=== PATIENT | male | born 1985 | race Caucasian/White ===

== ENCOUNTER 2017-08-27 09:10 | Emergency (ER) | payer OTHER ==
[2017-08-27 09:30] VITALS: BP 136/87; PULSE 61; RESP 16; TEMP 98.3; O2SAT 100
--- NOTE | 2017-08-27 10:20 | ED PDOC ---
Arrival/HPI - General Chief Complaint: Back Pain Time Seen by Provider: 08/27/17 09:35 Historian: Patient - History of Present Illness Narrative History of Present Illness (Text): 08/27/17 10:15 Pt is a 32 yr old male who presents tot the Ed for pain and numbness in the left LE for the past week. States that he has noticed his leg getting increasingly numb especially while standing and walking but finds relief when seated of lying supine. Has been taking a homeopathic remedy for sciatica but no significant change noted. 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 Denies chest pain, shortness of breath, fever, change in bowel or bladder, saddle paraesthesia, loss of balance , n/v/d, trauma or any other complaints. Time/Duration: Prior to Arrival Past Medical History - Provider Review Nursing Documentation Reviewed: Yes - Travel History Have you recently traveled outside [place] w/in the past 3 mons?: No - Cardiac Hx Cardiac Disorders: No - Pulmonary Hx Respiratory Disorders: Yes Hx Asthma: Yes - Neurological Hx Neurological Disorder: No - HEENT Hx HEENT Disorder: No - Renal Hx Renal Disorder: No - Endocrine/Metabolic Hx Endocrine Disorders: No - Hematological/Oncological Hx Blood Disorders: No - Integumentary Hx Dermatological Disorder: No - Musculoskeletal/Rheumatological Hx Musculoskeletal Disorders: No - Gastrointestinal Hx Gastrointestinal Disorders: No - Genitourinary/Gynecological Hx Genitourinary Disorders: No - Psychiatric Hx Psychophysiologic Disorder: No Hx Substance Use: No Family/Social History - Physician Review Nursing Documentation Reviewed: Yes Family/Social History: No Known Family HX Smoking Status: Current Some Days Smoker Hx Alcohol Use: Yes Frequency of alcohol use: Socially Hx Substance Use: No Allergies/Home Meds Allergies/Adverse Reactions: Allergies No Known Allergies Allergy (Verified 08/27/17 09:26) Review of Systems - Review of Systems Constitutional: Normal Eyes: Normal ENT: Normal Respiratory: Normal Cardiovascular: Normal Gastrointestinal: Normal Genitourinary Male: Normal Musculoskeletal: Back Pain Skin: Normal Neurological: Normal Psychiatric: Normal Physical Exam Vital Signs Reviewed: Yes Vital Signs Temp Pulse Resp BP Pulse Ox 08/27/17 09:27 98.3 F 61 16 136/87 100 Temperature: Afebrile Blood Pressure: Normal Pulse: Regular Respiratory Rate: Normal Appearance: Positive for: Well-Appearing, Non-Toxic, Comfortable Pain Distress: Mild Mental Status: Positive for: Alert and Oriented X 3 - Systems Exam Head: Present: Atraumatic, Normocephalic Neck: Present: Normal Range of Motion Respiratory/Chest: Present: Clear to Auscultation, Good Air Exchange. No: Respiratory Distress, Accessory Muscle Use Cardiovascular: Present: Regular Rate and Rhythm, Normal S1, S2. No: Murmurs Abdomen: No: Tenderness, Distention, Peritoneal Signs Back: Present: Normal Inspection, Paraspinal Tenderness (lumbar from L4-S1). No : CVA Tenderness, Pain with Leg Raise Upper Extremity: Present: Normal Inspection. No: Cyanosis, Edema Lower Extremity: Present: Normal Inspection, NORMAL PULSES, Normal ROM, Neurovascularly Intact, Capillary Refill < 2 s. No: Edema, CALF TENDERNESS, Cyanosis, Clementina's Sign, Tenderness, Swelling, Temperature Abnormalties Neurological: Present: GCS=15, CN II-XII Intact, Speech Normal, Motor Func Grossly Intact, Normal Sensory Function, Norm Deep Tendon Reflexes, Gait Normal Skin: Present: Warm, Dry, Normal Color. No: Rashes Psychiatric: Present: Alert, Oriented x 3, Normal Insight, Normal Concentration Medical Decision Making ED Course and Treatment: 08/27/17 10:20 Impression Pt is a 32 yr old male who presents tot the Ed for pain and numbness in the left LE for the past week. (+)SLR Left LE with radiculopathy down to heel Working Dx: herniated disc of lumbar spine, lumbar spinal stenosis Plan Toradol IM gabapentin po assess and dispo Progress note referral to spine and pain management in [place] gabapentin 300mg po tid for neuropathic pain] advised on ergonomics and lifestyle modifications 08/27/17 10:57 IMPRESSION: Please note evaluation of the discs and spinal canal is limited on noncontrast CT examination. Allowing for this, no acute fracture, spondylolysis or spondylosis listhesis. Mild multilevel degenerative disc disease superimposed on a congenitally narrow spinal canal, worse at L4-5 with a large left posterolateral and foraminal disc extrusion with mass effect on the traversing L5 and exiting L4 nerve root. Also noted is moderate spinal canal stenosis, [id number] right and severe left neural foraminal narrowing. Additional comments as described above. 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 There is normal alignment of the lumbar vertebral bodies. There is normal lumbar lordosis. There is no acute fracture, spondylolysis or spondylolisthesis. Bone mineralization is normal. DISCS/SPINAL CANAL/NEURAL FORAMINA: L1-2: No large disc herniation, neural foraminal or spinal canal stenosis. L2-3: Diffuse posterior disc bulge and mild ligamentum flavum infolding without central spinal canal stenosis. Mild bilateral facet arthropathy contribute to mild neural foraminal narrowing. L3-4: Diffuse posterior disc bulge in conjunction with mild ligamentum flavum infolding results in mild spinal canal stenosis. Mild bilateral facet arthropathy contribute to mild neural foraminal narrowing. L4-5: There is a large left posterolateral and foraminal disc extrusion with approximately 9 mm posterior lateral extrusion of disc fragment with resultant compression on the traversing L5 nerve root and the traversing left-sided nerve roots. The foraminal component also results in mass effect on the exiting left L4 nerve root. Moderate ligamentum flavum infolding contributes to moderate spinal canal stenosis. Moderate bilateral facet arthropathy contribute to severe left and [id number] right neural foraminal L5-S1: Broad-based central disc protrusion and mild spinal canal stenosis. Mild bilateral facet arthropathy contribute to moderate neural foraminal narrowing. Evaluation of the spinal canal is limited in the absence of intrathecal contrast. 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 PARASPINAL SOFT TISSUES: The paraspinous soft tissues are normal. Imaged portion of the retroperitoneum is within normal limits. OTHER FINDINGS: None. IMPRESSION: Please note evaluation of the discs and spinal canal is limited on noncontrast CT examination. Allowing for this, no acute fracture, spondylolysis or spondylosis listhesis. Mild multilevel degenerative disc disease superimposed on a congenitally narrow spinal canal, worse at L4-5 with a large left posterolateral and foraminal disc extrusion with mass effect on the traversing L5 and exiting L4 nerve root. Also noted is moderate spinal canal stenosis, [id number] right and severe left neural foraminal narrowing. Additional comments as described above. Radiology Orders: 08/27/17 10:12 LUMBAR SPINE W/O CONTRAST [CT] Stat - Medication Orders Current Medication Orders: Discontinued Medications Ketorolac Tromethamine (Toradol) 30 mg IM STAT STA Stop: 08/27/17 10:15 Last Admin: 08/27/17 10:39 Dose: 30 mg MAR Pain Assessment Document 08/27/17 10:39 [place] (Rec: 08/27/17 10:39 [place] [id number]) Pain Reassessment Is this a pain reassessment? Yes Presence of Pain Presence of Pain Yes Pain Scale Used Pain Scale Used Numeric Location Upper or Lower Lower Pain Location Body Site Back Description Description Sharp Intensity of Pain at present 10 IM Administration Charges Document 08/27/17 10:39 [place] (Rec: 08/27/17 10:39 [place] [id number]) Injection Site MAR Injection Site Left Deltoid Charges for Administration # of IM Administrations 1 Disposition/Present on Arrival - Present on Arrival Any Indicators Present on Arrival: Yes History of DVT/PE: No History of Uncontrolled Diabetes: No Urinary Catheter: No History of Decub. Ulcer: No History Surgical Site Infection Following: None - Disposition Have Diagnosis and Disposition been Completed?: Yes Diagnosis: Lumbar spinal stenosis, Lumbar back pain with radiculopathy affecting left lower extremity, Lumbar disc herniation Disposition: HOME/ ROUTINE Disposition Time: 10:59 Patient Plan: Discharge Condition: STABLE Discharge Instructions (ExitCare): Herniated Disc Exercises, Spinal Stenosis Stretching Exercises, Spinal Stenosis Strengthening Exercises Additional Instructions: RHONA DE JESUS, thank you for letting us take care of you today. Your provider was Chilo Doe DO and MOR Moreno and you were treated for LOWER BACK PAIN/ (L)LEG NUMBNESS. The emergency medical care you received today was directed at your acute symptoms. If you were prescribed any medication, please fill it and take as directed. It may take several days for your symptoms to resolve. Return to the Emergency Department if your symptoms worsen, do not improve, or if you have any other problems. PLEASE SEE THE SPINE AND CLINICAL ADVISOR RECOMMENDED FOR FOLLOW UP CARE. YOU MAY REQUIRE STEROID INJECTIONS AND PHYSICAL THERAPY USE CARE AND CAUTION WHEN TAKING GABAPENTIN IT MAY MAKE YOU DROWSY Please contact your doctor or call one of the physicians/clinics you have been referred to that are listed on the Patient Visit Information form that is included in your discharge packet. Bring any paperwork you were given at discharge with you along with any medications you are taking to your follow up visit. Our treatment cannot replace ongoing medical care by a primary care provider outside of the emergency department. Thank you for allowing the [facility] team to be part of your care today. If you had an X-Ray or CT scan: A Radiologist will review the ED reading if any change in treatment is needed we will contact you. Prescriptions: Gabapentin [Neurontin] 300 mg PO TID 5 Days #15 cap Ibuprofen [Motrin Tab] 600 mg PO Q6 PRN 5 Days #20 tab PRN Reason: pain/fever Referrals: [facility] at [facility] [place] [Outside] - Follow up with primary Blayne Dey MD [Staff Provider] - Follow up with primary Forms: [employer] ([place]ian), WORK NOTE
--- NOTE | 2017-08-27 10:52 | CT ---
Date of service: 08/27/2017 PROCEDURE: CT Lumbar Spine without contrast HISTORY: Lumbar radiculopathy COMPARISON: None. TECHNIQUE: Axial computed tomography images were obtained of the lumbar spine without the use of intravenous contrast. Coronal and sagittal reformatted images were created and reviewed. Radiation dose: Total exam DLP = 264.05. MGy-cm. This CT exam was performed using one or more of the following dose reduction techniques: Automated exposure control, adjustment of the mA and/or kV according to patient size, and/or use of iterative reconstruction technique. FINDINGS: VERTEBRAE: There is mild levocurvature in the lumbar spine which may be positional. There is normal alignment of the lumbar vertebral bodies. There is normal lumbar lordosis. There is no acute fracture, spondylolysis or spondylolisthesis. Bone mineralization is normal. DISCS/SPINAL CANAL/NEURAL FORAMINA: L1-2: No large disc herniation, neural foraminal or spinal canal stenosis. L2-3: Diffuse posterior disc bulge and mild ligamentum flavum infolding without central spinal canal stenosis. Mild bilateral facet arthropathy contribute to mild neural foraminal narrowing. L3-4: Diffuse posterior disc bulge in conjunction with mild ligamentum flavum infolding results in mild spinal canal stenosis. Mild bilateral facet arthropathy contribute to mild neural foraminal narrowing. L4-5: There is a large left posterolateral and foraminal disc extrusion with approximately 9 mm posterior lateral extrusion of disc fragment with resultant compression on the traversing L5 nerve root and the traversing left-sided nerve roots. The foraminal component also results in mass effect on the exiting left L4 nerve root. Moderate ligamentum flavum infolding contributes to moderate spinal canal stenosis. Moderate bilateral facet arthropathy contribute to severe left and [id number] right neural foraminal L5-S1: Broad-based central disc protrusion and mild spinal canal stenosis. Mild bilateral facet arthropathy contribute to moderate neural foraminal narrowing. Evaluation of the spinal canal is limited in the absence of intrathecal contrast. 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 PARASPINAL SOFT TISSUES: The paraspinous soft tissues are normal. Imaged portion of the retroperitoneum is within normal limits. OTHER FINDINGS: None. IMPRESSION: Please note evaluation of the discs and spinal canal is limited on noncontrast CT examination. Allowing for this, no acute fracture, spondylolysis or spondylosis listhesis. Mild multilevel degenerative disc disease superimposed on a congenitally narrow spinal canal, worse at L4-5 with a large left posterolateral and foraminal disc extrusion with mass effect on the traversing L5 and exiting L4 nerve root. Also noted is moderate spinal canal stenosis, [id number] right and severe left neural foraminal narrowing. Additional comments as described above.
== END 2017-08-27 11:23 | disposition home or self-care (01) ==
LOC: ED 09:10
DX: M51.16 Intervertebral disc disorders with radiculopathy, lumbar region (principal); M48.061 Spinal stenosis, lumbar region without neurogenic claudication
CPT/HCPCS: 72131; 96372; 99281; J1885